=== PATIENT | female | born 1995 | race Native Hawaiian/Other Pacific Islander ===

== ENCOUNTER 2016-05-20 08:34 | Emergency (ER) | payer OTHER ==
[2016-05-20] MEDS ORDERED: AUGMENTIN 875 MG TAB As Ordered ONE (09:43)
--- NOTE | 2016-05-20 09:49 | EDDOCDS ---
Nurse's Notes [facility] Name: Jackelin Rust Age: 20 yrs Sex: Female : 1995 Arrival Date: 05/20/2016 Time: 08:34 Bed I2 / M2 Private MD: Diagnosis: Streptococcal pharyngitis;Nausea and vomiting;Acute sinusitis Presentation: 05/20 08:44 Presenting complaint: Patient states: not feeling well for 4 days. complains of body kr3 aches and pain swallowing. Adult Sepsis Screening: The patient does not have new or worsening altered mentation. Patient's respiratory rate is less than 22. Systolic blood pressure is greater than 100. Patient has a qSOFA score of 0- Negative Sepsis Screen. Suicide/Homicide risk assessment- the patient denies having any suicidal and/or homicidal ideations and does not present with any other emotional, behavioral or mental health complaints. 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 Transition of care: patient was not received from another setting of care. 08:44 Acuity: DELMY Level 4 kr3 08:44 Method Of Arrival: Walkin/Carried/Asstd kr3 Triage Assessment: 08:45 General: Appears in no apparent distress, comfortable, Behavior is cooperative. Pain: kr3 Location: body aches Pain currently is 8 out of 10 on a pain scale. Pt Declines HIV testing. EENT: Reports nasal congestion pain swallowing. Respiratory: Respiratory effort is even, unlabored. Derm: Skin is pink, warm & dry. 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 none - PMHx: none; - PSHx: none; - Social history: Smoking status: Patient states was never smoker of tobacco. No barriers to communication noted, The patient speaks fluent Persian, Speaks appropriately for age. - Family history: Not pertinent. - : The pt / caregiver states he / she is not on anticoagulants. Home medication list is obtained from the patient. - Exposure Risk Screening:: None identified. Screenin:58 Screening information is obtained from the patient. Fall risk: No risks identified. js13 Assistance ADL's: requires no assistance with activities of daily living. Abuse/DV Screen: The patient / caregiver reports he/she is: not in a situation that causes fear, pain or injury. Nutritional screening: No deficits noted. Advance Directives: There is no active DNR order. home support is adequate. Assessment: 08:57 General: Appears in no apparent distress, Behavior is appropriate for age, cooperative. js13 Pain: Pain currently is 2 out of 10 on a pain scale. Neurological: Level of Consciousness is awake, alert. Respiratory: Airway is patent Respiratory effort is even, unlabored, Respiratory pattern is regular, symmetrical. Derm: Skin is normal. Vital Signs: 08:42 BP 123 / 85; Pulse 67; Resp 20; Temp 97(O); Pulse Ox 98% ; Weight 72.57 kg (R); Height kr3 5 ft. 6 in. (167.64 cm) (R); 09:46 BP 124 / 79; Pulse 54; Resp 18; Temp 97.6; Pulse Ox 99% ; Pain 8/10; jam1 08:42 Body Mass Index 25.82 (72.57 kg, 167.64 cm) kr3 Vitals: 08:45 Log In Time: May 20, 2016 at 08:34. kr3 08:57 Strep Screen is obtained and tested: Positive. js13 ED Course: 08:35 Patient visited by Magdy Britt Reg. mpb 08:35 Patient moved to Waiting mpb 08:42 Patient moved to Triage 1 kr3 08:45 Triage Initiated kr3 08:46 Patient moved to I2 / M2 kr3 08:47 [facility] ef1 08:47 Margarita Fu MD is Attending Physician. ef1 08:48 Patient visited by June Evans PA-C. ef1 08:57 -Influenza A&B Rapid Antigen - Nose Sent. js13 08:58 Patient visited by Nena Saleh RN. js13 08:58 The patient / caregiver is instructed regarding the plan of care and ED course. js13 08:58 No IV's were initiated during this patient's visit. No procedures done that require [facility] assistance. 09:08 [facility] Payment Agreement was scanned into [employer] and attached to record. lg 09:16 Pt greeted and oriented to ED. Patient advised of names of staff involved in care, [facility] location of call león, wait times and NPO status. Patient has correct armband on for positive identification. Bed in low position. Call light in reach. Side rails up X 1. Door closed. 09:35 Patient visited by Abram Augustine RN. ml6 09:42 Crista Tsai [facility] is Referral Physician. ef1 Administered Medications: 09:44 Drug: Amoxicillin-Clavulanate 1 tabs [amoxicillin 875 mg-potassium clavulanate 125 mg js13 tablet (1 tabs)] Route: PO; 09:48 Follow up: Response: Pt left department before re-evaluation is appropriate js13 Order Results: Lab Order: -Influenza A&B Rapid Antigen - Nose; SPEC'M 05/20/16 08:52 Test: INFLUENZA A RAPID SCR by ICA; Value: INFLUENZA A RESULTS NEGATIVE; Status: F Test: INFLUENZA A RAPID SCR by ICA; Value: Comments:; Status: F Test: INFLUENZA B RAPID SCR by ICA; Value: INFLUENZA B RESULTS NEGATIVE; Status: F Test Note: ; The Influenza test is a direct rapid immunoassay for the qualitative detection of Influenza viral antigen. Cell culture (Viral Culture) testing should be considered to confirm NEGATIVE results and to assist in detecting other viruses that can provide similar clinical symptoms. Please contact the lab within 24 hours ([phone]) if confirmatory testing is desired. Outcome: 09:42 Discharge ordered by Provider. ef1 09:45 Discharge Assessment: Patient awake, alert and oriented x 3. No cognitive and/or js13 functional deficits noted. Patient verbalized understanding of disposition instructions. patient administered narcotics - no. The following High Risk Discharge criteria are identified: None. Discharged to home ambulatory. Condition: good Condition: stable. Discharge instructions given to patient, Instructed on discharge instructions, follow up and referral plans. medication usage, Demonstrated understanding of instructions, medications, Pt was receptive of discharge instructions/ teaching. No special radiology studies were completed. Property :Personal belongings accompany Pt. 09:48 Prescriptions given X 4. js13 09:48 Patient left the ED. js13 Signatures: Juany Power, EXCEPTIONAL CHILDREN TEACHER ASSISTANT EXCEPTIONAL CHILDREN TEACHER ASSISTANT jam1 Taj Calixto, Reg Reg lg Jessica Melara,CORRINA RN kr3 June Evans, PA-C PA-C ef1 Abram Augustine, RN RN ml6 Nena SalehRN RN js13 Magdy Britt, Reg Reg mpb Corrections: (The following items were deleted from the chart) 09:00 08:57 Strep Screen is obtained and tested: Negative, a GATSNEG culture is ordered in [address] and sent. [facility] 09:06 08:58 GATS(NEG STREP SCREEN) ED ONLY+RICH sent. [facility] EDMS MTDD
--- NOTE | 2016-05-20 09:49 | EDDOCDS ---
Physician Documentation [facility] Name: Jackelin Rust Age: 20 yrs Sex: Female : 1995 Arrival Date: 05/20/2016 Time: 08:34 Bed I2 / M2 Private MD: Disposition: 05/20/16 09:42 Discharged to Home/Self Care. Impression: Streptococcal pharyngitis, Nausea and vomiting, Acute sinusitis. - Condition is Stable. - Discharge Instructions: Sinusitis, Rupd-cb-Ktqw, Nausea and Vomiting, Azaw-xo-Kpfi, Strep Throat, Ywod-qs-Mpsy. - Prescriptions for Augmentin 875- 125 mg Oral Tablet - take 1 tablet by ORAL route every 12 hours for 10 days; 20 tablet. Ibuprofen 800 mg Oral Tablet - take 1 tablet by ORAL route every 8 hours As needed take with food; 30 tablet. Claritin 10 mg Oral Tablet - take 1 tablet by ORAL route once daily As needed; 30 tablet. Mucinex 600 mg - take 1 tablet by ORAL route 2 times per day; 30 tablet. - Medication Reconciliation, Local Pharmacy Hours form. - Follow up: [facility] [place]; When: 1 - 2 days; Reason: Recheck today's complaints, Continuance of care. Follow up: Emergency Department; Reason: Worsening of conditions. - Problem is new. - Symptoms have improved. Historical: - Allergies: no known allergies; - Home Meds: 1. none - PMHx: none; - PSHx: none; - Social history: Smoking status: Patient states was never smoker of tobacco. No barriers to communication noted, The patient speaks fluent Argentine, Speaks appropriately for age. - Family history: Not pertinent. - : The pt / caregiver states he / she is not on anticoagulants. Home medication list is obtained from the patient. - Exposure Risk Screening:: None identified. 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 6 in. (167.64 cm) (R); 09:46 BP 124 / 79; Pulse 54; Resp 18; Temp 97.6; Pulse Ox 99% ; Pain 8/10; jam1 08:42 Body Mass Index 25.82 (72.57 kg, 167.64 cm) kr3 MDM: 08:47 Strep Screen, Nursing ordered. ef1 08:47 Obtain sample by nasopharyngeal swab ordered. ef1 08:48 -Influenza A&B Rapid Antigen - Nose Ordered. EDMS 09:03 Financial registration complete. lg 09:08 [facility] Payment Agreement was scanned into [employer] and attached to record. lg 09:41 -Influenza A&B Rapid Antigen - Nose Reviewed. ef1 09:42 Amoxicillin-Clavulanate 875 mg 1 tabs PO once ordered. ef1 Administered Medications: 09:44 Drug: Amoxicillin-Clavulanate 1 tabs [amoxicillin 875 mg-potassium clavulanate 125 mg js13 tablet (1 tabs)] Route: PO; 09:48 Follow up: Response: Pt left department before re-evaluation is appropriate js13 Signatures: Dispatcher [employer] EDMS Taj Calixto Reg Reg lg Jessica Melara,RN RN kr3 June Evans, PA-C PA-C ef1 Nena Saleh,RN RN js13 The chart was reviewed and I authenticate all verbal orders and agree with the evaluation and treatment provided.Corrections: (The following items were deleted from the chart) 09:06 08:58 GATS(NEG STREP SCREEN) ED ONLY+RICH ordered. EDMS EDMS Attachments: 09:08 [facility] Payment Agreement lg MTDD
--- NOTE | 2016-05-22 10:49 | EDDOCDS ---
Physician Documentation [facility] Name: Jackelin Rust Age: 20 yrs Sex: Female : 1995 Arrival Date: 05/20/2016 Time: 08:34 Bed I2 / M2 Private MD: Disposition: 05/20/16 09:42 Discharged to Home/Self Care. Impression: Streptococcal pharyngitis, Nausea and vomiting, Acute sinusitis. - Condition is Stable. - Discharge Instructions: Sinusitis, Fgoh-yt-Mkhy, Nausea and Vomiting, Ssql-sb-Wwmu, Strep Throat, Qamc-fk-Nfrn. - Prescriptions for Augmentin 875- 125 mg Oral Tablet - take 1 tablet by ORAL route every 12 hours for 10 days; 20 tablet. Ibuprofen 800 mg Oral Tablet - take 1 tablet by ORAL route every 8 hours As needed take with food; 30 tablet. Claritin 10 mg Oral Tablet - take 1 tablet by ORAL route once daily As needed; 30 tablet. Mucinex 600 mg - take 1 tablet by ORAL route 2 times per day; 30 tablet. - Medication Reconciliation, Local Pharmacy Hours form. - Follow up: [facility] [place]; When: 1 - 2 days; Reason: Recheck today's complaints, Continuance of care. Follow up: Emergency Department; Reason: Worsening of conditions. - Problem is new. - Symptoms have improved. Historical: - Allergies: no known allergies; - Home Meds: 1. none - PMHx: none; - PSHx: none; - Social history: Smoking status: Patient states was never smoker of tobacco. No barriers to communication noted, The patient speaks fluent Cape Verdean, Speaks appropriately for age. - Family history: Not pertinent. - : The pt / caregiver states he / she is not on anticoagulants. Home medication list is obtained from the patient. - Exposure Risk Screening:: None identified. 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 6 in. (167.64 cm) (R); 09:46 BP 124 / 79; Pulse 54; Resp 18; Temp 97.6; Pulse Ox 99% ; Pain 8/10; jam1 08:42 Body Mass Index 25.82 (72.57 kg, 167.64 cm) kr3 MDM: 08:47 Strep Screen, Nursing ordered. ef1 08:47 Obtain sample by nasopharyngeal swab ordered. ef1 08:48 -Influenza A&B Rapid Antigen - Nose Ordered. EDMS 09:03 Financial registration complete. lg 09:08 [facility] Payment Agreement was scanned into [employer] and attached to record. lg 09:41 -Influenza A&B Rapid Antigen - Nose Reviewed. ef1 09:42 Amoxicillin-Clavulanate 875 mg 1 tabs PO once ordered. ef1 12:42 T-Sheet-- Draft Copy was scanned into [employer] and attached to record. klr Administered Medications: 09:44 Drug: Amoxicillin-Clavulanate 1 tabs [amoxicillin 875 mg-potassium clavulanate 125 mg js13 tablet (1 tabs)] Route: PO; 09:48 Follow up: Response: Pt left department before re-evaluation is appropriate js13 Signatures: Dispatcher [employer] EDMS Taj Calixto, Reg Reg lg Jessica Melara,RN RN kr3 June Evans, PA-C PA-C ef1 Nena Saleh,RN RN js13 Veena Oneil The chart was reviewed and I authenticate all verbal orders and agree with the evaluation and treatment provided.Corrections: (The following items were deleted from the chart) 09:06 08:58 GATS(NEG STREP SCREEN) ED ONLY+RICH ordered. EDMS EDMS Attachments: 09:08 [facility] Payment Agreement lg 12:42 T-Sheet-- Draft Copy klr Chart Complete MTDD
--- NOTE | 2016-05-22 10:49 | EDDOCDS ---
Physician Documentation [facility] Name: Jackelin Rust Age: 20 yrs Sex: Female : 1995 Arrival Date: 05/20/2016 Time: 08:34 Bed I2 / M2 Private MD: Disposition: 05/20/16 09:42 Discharged to Home/Self Care. Impression: Streptococcal pharyngitis, Nausea and vomiting, Acute sinusitis. - Condition is Stable. - Discharge Instructions: Sinusitis, Kgal-tq-Icwz, Nausea and Vomiting, Vpjd-sw-Aedu, Strep Throat, Amdu-sd-Ziag. - Prescriptions for Augmentin 875- 125 mg Oral Tablet - take 1 tablet by ORAL route every 12 hours for 10 days; 20 tablet. Ibuprofen 800 mg Oral Tablet - take 1 tablet by ORAL route every 8 hours As needed take with food; 30 tablet. Claritin 10 mg Oral Tablet - take 1 tablet by ORAL route once daily As needed; 30 tablet. Mucinex 600 mg - take 1 tablet by ORAL route 2 times per day; 30 tablet. - Medication Reconciliation, Local Pharmacy Hours form. - Follow up: [facility] [place]; When: 1 - 2 days; Reason: Recheck today's complaints, Continuance of care. Follow up: Emergency Department; Reason: Worsening of conditions. - Problem is new. - Symptoms have improved. Historical: - Allergies: no known allergies; - Home Meds: 1. none - PMHx: none; - PSHx: none; - Social history: Smoking status: Patient states was never smoker of tobacco. No barriers to communication noted, The patient speaks fluent Turkmen, Speaks appropriately for age. - Family history: Not pertinent. - : The pt / caregiver states he / she is not on anticoagulants. Home medication list is obtained from the patient. - Exposure Risk Screening:: None identified. 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 6 in. (167.64 cm) (R); 09:46 BP 124 / 79; Pulse 54; Resp 18; Temp 97.6; Pulse Ox 99% ; Pain 8/10; jam1 08:42 Body Mass Index 25.82 (72.57 kg, 167.64 cm) kr3 MDM: 08:47 Strep Screen, Nursing ordered. ef1 08:47 Obtain sample by nasopharyngeal swab ordered. ef1 08:48 -Influenza A&B Rapid Antigen - Nose Ordered. EDMS 09:03 Financial registration complete. lg 09:08 [facility] Payment Agreement was scanned into [employer] and attached to record. lg 09:41 -Influenza A&B Rapid Antigen - Nose Reviewed. ef1 09:42 Amoxicillin-Clavulanate 875 mg 1 tabs PO once ordered. ef1 12:42 T-Sheet-- Draft Copy was scanned into [employer] and attached to record. klr Administered Medications: 09:44 Drug: Amoxicillin-Clavulanate 1 tabs [amoxicillin 875 mg-potassium clavulanate 125 mg js13 tablet (1 tabs)] Route: PO; 09:48 Follow up: Response: Pt left department before re-evaluation is appropriate js13 Signatures: Dispatcher [employer] EDMS Taj Calixto, Reg Reg lg Jessica Melara,RN RN kr3 June Evans, PA-C PA-C ef1 Nena Saleh,RN RN js13 Veena Oneil The chart was reviewed and I authenticate all verbal orders and agree with the evaluation and treatment provided.Corrections: (The following items were deleted from the chart) 09:06 08:58 GATS(NEG STREP SCREEN) ED ONLY+RICH ordered. EDMS EDMS Attachments: 09:08 [facility] Payment Agreement lg 12:42 T-Sheet-- Draft Copy klr Chart Complete MTDD
--- NOTE | 2016-05-22 10:49 | EDDOCDS ---
Nurse's Notes [facility] Name: Jackelin Rust Age: 20 yrs Sex: Female : 1995 Arrival Date: 05/20/2016 Time: 08:34 Bed I2 / M2 Private MD: Diagnosis: Streptococcal pharyngitis;Nausea and vomiting;Acute sinusitis Presentation: 05/20 08:44 Presenting complaint: Patient states: not feeling well for 4 days. complains of body kr3 aches and pain swallowing. Adult Sepsis Screening: The patient does not have new or worsening altered mentation. Patient's respiratory rate is less than 22. Systolic blood pressure is greater than 100. Patient has a qSOFA score of 0- Negative Sepsis Screen. Suicide/Homicide risk assessment- the patient denies having any suicidal and/or homicidal ideations and does not present with any other emotional, behavioral or mental health complaints. 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 Transition of care: patient was not received from another setting of care. 08:44 Acuity: DELMY Level 4 kr3 08:44 Method Of Arrival: Walkin/Carried/Asstd kr3 Triage Assessment: 08:45 General: Appears in no apparent distress, comfortable, Behavior is cooperative. Pain: kr3 Location: body aches Pain currently is 8 out of 10 on a pain scale. Pt Declines HIV testing. EENT: Reports nasal congestion pain swallowing. Respiratory: Respiratory effort is even, unlabored. Derm: Skin is pink, warm & dry. 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 none - PMHx: none; - PSHx: none; - Social history: Smoking status: Patient states was never smoker of tobacco. No barriers to communication noted, The patient speaks fluent Upper Sorbian, Speaks appropriately for age. - Family history: Not pertinent. - : The pt / caregiver states he / she is not on anticoagulants. Home medication list is obtained from the patient. - Exposure Risk Screening:: None identified. Screenin:58 Screening information is obtained from the patient. Fall risk: No risks identified. js13 Assistance ADL's: requires no assistance with activities of daily living. Abuse/DV Screen: The patient / caregiver reports he/she is: not in a situation that causes fear, pain or injury. Nutritional screening: No deficits noted. Advance Directives: There is no active DNR order. home support is adequate. Assessment: 08:57 General: Appears in no apparent distress, Behavior is appropriate for age, cooperative. js13 Pain: Pain currently is 2 out of 10 on a pain scale. Neurological: Level of Consciousness is awake, alert. Respiratory: Airway is patent Respiratory effort is even, unlabored, Respiratory pattern is regular, symmetrical. Derm: Skin is normal. Vital Signs: 08:42 BP 123 / 85; Pulse 67; Resp 20; Temp 97(O); Pulse Ox 98% ; Weight 72.57 kg (R); Height kr3 5 ft. 6 in. (167.64 cm) (R); 09:46 BP 124 / 79; Pulse 54; Resp 18; Temp 97.6; Pulse Ox 99% ; Pain 8/10; jam1 08:42 Body Mass Index 25.82 (72.57 kg, 167.64 cm) kr3 Vitals: 08:45 Log In Time: May 20, 2016 at 08:34. kr3 08:57 Strep Screen is obtained and tested: Positive. js13 ED Course: 08:35 Patient visited by Magdy Britt Reg. mpb 08:35 Patient moved to Waiting mpb 08:42 Patient moved to Triage 1 kr3 08:45 Triage Initiated kr3 08:46 Patient moved to I2 / M2 kr3 08:47 [facility] ef1 08:47 Margarita Fu MD is Attending Physician. ef1 08:48 Patient visited by June Evans PA-C. ef1 08:57 -Influenza A&B Rapid Antigen - Nose Sent. js13 08:58 Patient visited by Nena Saleh RN. js13 08:58 The patient / caregiver is instructed regarding the plan of care and ED course. js13 08:58 No IV's were initiated during this patient's visit. No procedures done that require [facility] assistance. 09:08 [facility] Payment Agreement was scanned into [employer] and attached to record. lg 09:16 Pt greeted and oriented to ED. Patient advised of names of staff involved in care, [facility] location of call león, wait times and NPO status. Patient has correct armband on for positive identification. Bed in low position. Call light in reach. Side rails up X 1. Door closed. 09:35 Patient visited by Abram Augustine RN. ml6 09:42 Crista Tsai [facility] is Referral Physician. ef1 12:42 T-Sheet-- Draft Copy was scanned into [employer] and attached to record. klr Administered Medications: 09:44 Drug: Amoxicillin-Clavulanate 1 tabs [amoxicillin 875 mg-potassium clavulanate 125 mg js13 tablet (1 tabs)] Route: PO; 09:48 Follow up: Response: Pt left department before re-evaluation is appropriate js13 Order Results: Lab Order: -Influenza A&B Rapid Antigen - Nose; SPEC'M 05/20/16 08:52 Test: INFLUENZA A RAPID SCR by ICA; Value: INFLUENZA A RESULTS NEGATIVE; Status: F Test: INFLUENZA A RAPID SCR by ICA; Value: Comments:; Status: F Test: INFLUENZA B RAPID SCR by ICA; Value: INFLUENZA B RESULTS NEGATIVE; Status: F Test Note: ; The Influenza test is a direct rapid immunoassay for the qualitative detection of Influenza viral antigen. Cell culture (Viral Culture) testing should be considered to confirm NEGATIVE results and to assist in detecting other viruses that can provide similar clinical symptoms. Please contact the lab within 24 hours ([phone]) if confirmatory testing is desired. Outcome: 09:42 Discharge ordered by Provider. ef1 09:45 Discharge Assessment: Patient awake, alert and oriented x 3. No cognitive and/or js13 functional deficits noted. Patient verbalized understanding of disposition instructions. patient administered narcotics - no. The following High Risk Discharge criteria are identified: None. Discharged to home ambulatory. Condition: good Condition: stable. Discharge instructions given to patient, Instructed on discharge instructions, follow up and referral plans. medication usage, Demonstrated understanding of instructions, medications, Pt was receptive of discharge instructions/ teaching. No special radiology studies were completed. Property :Personal belongings accompany Pt. 09:48 Prescriptions given X 4. js13 09:48 Patient left the ED. js13 Signatures: Juany Power, NURSING TEACHER NURSING TEACHER jam1 Taj Calixto, Reg Reg lg Jessica Melara,RN RN kr3 June Eavns, PA-C PA-C ef1 Abram Augustine, RN RN ml6 Nena Saleh,RN RN js13 Magdy Britt, Reg Reg mpb Veena Oneil Corrections: (The following items were deleted from the chart) 09:00 08:57 Strep Screen is obtained and tested: Negative, a GATSNEG culture is ordered in [address] and sent. [facility] 09:06 08:58 GATS(NEG STREP SCREEN) ED ONLY+RICH sent. [facility] EDMS Chart Complete MTDD
== END 2016-05-20 09:48 | disposition home or self-care (01) ==
LOC: M ED 08:34
DX: J02.0 Streptococcal pharyngitis (principal); J01.90 Acute sinusitis, unspecified; R11.2 Nausea with vomiting, unspecified

== ENCOUNTER 2016-12-28 19:56 | Emergency (ER) | payer OTHER ==
[~2016-12-28] VITALS: Ht 167.6 cm; Wt 70.9 kg
[2016-12-28 20:13] VITALS: BP 120/73
[2016-12-28] MEDS ORDERED: IBUP200C10 PO (20:19)
[2016-12-28] MEDS ORDERED: NORCO 5/325MG TABLET (BULK FOR ED) PO ONE (22:00)
== END 2016-12-28 22:16 | disposition home or self-care (01) ==
LOC: M ED 19:56
DX: S76.012A Strain of muscle, fascia and tendon of left hip, initial encounter (principal); X50.1XXA Overexertion from prolonged static or awkward postures, initial encounter; Y92.13 Military base as the place of occurrence of the external cause; Y93.89 Activity, other specified; Y99.1 Military activity; F41.9 Anxiety disorder, unspecified